=== PATIENT | female | born 1960 | race Caucasian/White ===

== ENCOUNTER → 2017-10-26 | Day surgery (SDC) | payer OTHER ==
[2017-10-22 13:13] LABS: BASOPHILS % 0.1 % (0.0-1.0); HEMATOCRIT 36.4 % (34.2-44.1); HEMOGLOBIN 12.6 g/dL (12.0-16.0); LYMPHOCYTES # (AUTO) 0.8 (1.0-3.2); LYMPHOCYTES % 5.5 % (18.0-39.1); MEAN CORPUSCULAR HEMOGLOBIN 34.1 pg (28-32); MEAN CORPUSCULAR HGB CONC 34.6 g/dL (31-35); MEAN CORPUSCULAR VOLUME 98.6 fL (81-99); MONOCYTES # (AUTO) 0.5 (0.2-0.8); MONOCYTES % 3.2 % (4.4-11.3); NEUTROPHILS # (AUTO) 13.6 (2.1-6.9); NEUTROPHILS % 90.8 % (38.7-80.0); PLATELET COUNT 376 x10e3/uL (140-360); RED BLOOD COUNT 3.69 x10e6/uL (3.6-5.1)
[~2017-10-26] MED LIST: BOTOX100 UNIT IV; DEXAMETHASONE SOD PHOS INJ 4 MG/ML VIAL ONE; DIVIGEL1 GM; EPHEDRINE SULFATE INJ 50 MG/10 ML SYR ONE; FENTANYL CITRATE/PF 100MCG/2 ML INJ ONE; IBUPROFEN400 MG PO; KETOROLAC TROMETHAMINE 30 MG/ML VIAL ONE; LIDOCAINE HCL 2% LOCAL INJ 5 ML SDV VIAL INJ ONE; MEDROXYPROGESTER5 MG; METRONIDAZOLE 500MG/NS 100ML 100 ML IV ONE; MIDAZOLAM HCL 2 MG/2 ML VIAL ONE; NORCO 10-325 T1 EACH; ONDANSETRON HCL INJ 2 MG/ML VIAL ONE; PROLIA60 MG/1 ML; PROPOFOL IV EMULSION 10 MG/ML 20 ML VIAL ONE; SEVOFLURANE INHAL SOLN 250 ML PEN BTL ONE; VITAMIN C1000 MG; VITAMIN D3; ZOLPIDEM TARTRA10 MG PO
--- NOTE | 2017-10-26 12:53 | Operative Report ---
DATE OF PROCEDURE: October 26, 2017 VIAL GAUGER: None PREOPERATIVE DIAGNOSES 1. Abnormal uterine bleeding. 2. Persistent postmenopausal bleeding. 3. Benign endometrium on biopsy. POSTOPERATIVE DIAGNOSES 1. Abnormal uterine bleeding. 2. Persistent postmenopausal bleeding. 3. Benign endometrium on biopsy. PROCEDURES PERFORMED 1. Hysteroscopy. 2. Dilatation and curettage. 3. Endometrial ablation. ESTIMATED BLOOD LOSS: Minimal. COMPLICATIONS: None. FINDINGS: Normal bimanual exam with anteverted uterus. No adnexal masses palpable. Hysteroscopic findings included a normal uterine cavity with no abnormal structures, polyps or fibroids identified. Normal tubal ostia bilaterally. The uterus was sounded to 8.5 cm with the cervix 2 cm, making the cavity length 6.5 cm. SPECIMENS: Endometrial curettings. INDICATIONS: The patient is a 57-year-old postmenopausal female with persistent postmenopausal bleeding despite previous hysteroscopy, D and C. PROCEDURE NOTE: The patient was taken to the operating room where she underwent general anesthesia. She was prepped and draped in the typical sterile fashion in the dorsal lithotomy position with candy cane stirrups. After bimanual examination, the cervix was exposed and a weighted vaginal speculum was placed. The anterior lip of the cervix was grasped with a single-tooth tenaculum. The cervix and uterus were sounded with the findings noted above. The endocervical canal was progressively dilated with Hegar dilators to a #18. The hysteroscope was then introduced into the uterine cavity using sterile saline solution as a distending media. The endometrial cavity was distended with fluids, and the cavity was visualized with the findings noted above. Several pictures were taken of the endometrial cavity. Then a sharp curettage was performed until a gritty texture was noted. The Ny device was then opened. The instrument was set to the correct cavity length and introduced into the uterine cavity. The same was slowly deployed with gentle movements to ensure a snug fit within the cavity. The cervical balloon was inflated. A cavity integrity check was done and was normal. The device was activated and performed a full 120-second ablation cycle. The device was retracted and removed. The tenaculum was removed and the cervix examined for hemostasis, which was achieved. Finally, the weighted speculum was removed. The patient tolerated the procedure well, and was brought to the recovery room in stable condition. At the end of the procedure, all sponges and instruments were counted and correct. The blood loss was minimal, and there were no complications. Job#: [id number]
== END | disposition home or self-care (01) ==
LOC: OR 05:15
PROVIDERS: ATTEND Obstetrics & Gynecology Obstetrics
DX: N95.0 Postmenopausal bleeding (principal); G43.909 Migraine, unspecified, not intractable, without status migrainosus; N20.0 Calculus of kidney; Z01.810 Encounter for preprocedural cardiovascular examination; Z01.812 Encounter for preprocedural laboratory examination
CPT/HCPCS: 36415; 58563; 85025; 88305; 93005; J1100; J1885; J2001; J2250; J2405